=== PATIENT | male | born 1970 | race African-American/Black ===

== ENCOUNTER 2021-11-12 09:37 | Outpatient (CLI) | payer OTHER ==
[2021-11-12] MEDS ORDERED: Magnevist 469MG/ML 20 ML VIAL ONE (15:43)
== END 2021-11-12 09:38 | disposition home or self-care (01) ==
LOC: CSHMRI 09:37
PROVIDERS: ATTEND Neurological Surgery
DX: M51.36 Other intervertebral disc degeneration, lumbar region (principal); Z98.890 Other specified postprocedural states; R93.7 Abnormal findings on diagnostic imaging of other parts of musculoskeletal system; M51.27 Other intervertebral disc displacement, lumbosacral region
CPT/HCPCS: 72158; A9579